=== PATIENT | female | born 1995 | race Hispanic/Latino ===

== ENCOUNTER 2022-05-06 21:20 | Inpatient (IN) | payer OTHER ==
[~2022-05-06] VITALS: Ht 160 cm; Wt 69.9 kg
[2022-05-06] MEDS ORDERED: ACETAMINOPHEN 500 MG TABLET ONE (22:16)
[2022-05-06] MEDS ORDERED: ACETAMINOPHEN 500 MG TABLET PO ONE (22:30)
[2022-05-06] MEDS ORDERED: 0.9%NACL 1000ML 1,000 ML IV ONE (22:30)
[2022-05-06 22:44] LABS: BASOPHILS % (AUTO) 0.3 % (0.0-5.0); HEMATOCRIT 38.4 % (36-48); LYMPHOCYTES % (AUTO) 6.8 % (21.0-51.0); MEAN CORPUSCULAR HEMOGLOBIN 28.3 pg (27.0-33.0); MEAN CORPUSCULAR HGB CONC 32.6 g/dL (32.0-36.0); MEAN CORPUSCULAR VOLUME 86.9 fL (79-99); MONOCYTES % (AUTO) 10.3 % (3.0-13.0); NEUTROPHILS % (AUTO) 81.9 % (40.0-77.0); PLATELET COUNT (AUTO) 359 K/uL (130-400); RED BLOOD CELL COUNT(AUTO) 4.42 MIL/uL (4.00-5.50); RED CELL DISTRIBUTION WIDTH 13.8 % (11.0-15.5); WHITE BLOOD COUNT (AUTO) 26.1 K/uL (4.8-10.8)
[2022-05-06 22:49] LABS: APPEARANCE,URINE CLEAR (CLEAR); BILIRUBIN,URINE NEGATIVE (NEGATIVE); COLOR,URINE LIGHT-YELLOW (YELLOW); GLUCOSE, URINE (UA) NEGATIVE (NEGATIVE); KETONES,URINE NEGATIVE (NEGATIVE); LEUKOCYTE ESTERASE ,URINE NEGATIVE Leu/uL (NEGATIVE); NITRATE,URINE NEGATIVE (NEGATIVE); OCCULT BLOOD,URINE SMALL (NEGATIVE); PH,URINE 6.5 (5.0-8.0); PROTEIN,URINE NEGATIVE (NEGATIVE); UROBILINOGEN,URINE 0.2 mg/dL (0.2-1.0)
[2022-05-06 22:52] LABS: BACTERIA,URINE RARE /HPF (None Seen); HCG,QUALITATIVE URINE NEGATIVE (NEGATIVE); MUCUS,URINE RARE LPF (None Seen); SQUAMOUS EPITHELIAL CELL,UR RARE /HPF (0-2)
[2022-05-06 22:55] LABS: CREATININE 0.7 mg/dL (0.5-1.5); POTASSIUM 4.1 mmol/L (3.5-5.1)
[2022-05-06 23:00] LABS: ALBUMIN 3.3 g/dL (3.5-5.0)
[2022-05-06] MEDS ORDERED: ONDANSETRON 4MG INJ IVP ONE (23:00)
[2022-05-06] MEDS ORDERED: MORPHINE 4 MG SYG IVP ONE (23:00)
[2022-05-06] MEDS ORDERED: KETOROLAC 15MG/ML VIAL (15MG/ML) IV ONE (23:30)
[2022-05-06] MEDS ORDERED: ZOSYN 3.375GM +NS 50ML IVPB STA (23:41)
[2022-05-07] MEDS ORDERED: MORPHINE 2 MG SYG IVP ONE (04:30)
[2022-05-07] MEDS ORDERED: CEFOXITIN SODIUM 2 GM VIAL IVP SCH (06:30)
[2022-05-07] MEDS ORDERED: CLINDAMYCIN IVPB 900MG/50ML 50 ML IV SCH (06:30)
[2022-05-07] MEDS: DEXTROSE 5%-LACTATED RINGERS 1,000 ML IV SCH ×3 (06:52→22:30)
[2022-05-07] MEDS ORDERED: ACETAMINOPHEN 325 MG TAB PO PRN (08:30)
[2022-05-07] MEDS ORDERED: PROMETHAZINE HCL 25 MG/ML 1ML AMPULE IM PRN (08:30)
[2022-05-07] MEDS ORDERED: MEPERIDINE-PF 50 MG/ML SYG IM PRN (08:30)
[2022-05-07] MEDS ORDERED: GENTAMICIN PROTOCOL PER PHARMACY IV SCH ×2 (08:30→09:00)
[2022-05-07] MEDS ORDERED: ONDANSETRON 4MG INJ IVP PRN (08:30)
[2022-05-07] MEDS ORDERED: PHARMACY COMMUNICATION MISC SCH ×2 (08:30→10:30)
[2022-05-07] MEDS ORDERED: HYDROCODONE/ACETAMINOPHEN 5/325 MG TAB PO PRN (08:30)
[2022-05-07] MEDS ORDERED: VANCOMYCIN 1G/250ML KIT 250 ML IV SCH (09:00)
[2022-05-07] MEDS ORDERED: DOXYCYCLINE HYCLATE 100 MG TABLET PO SCH (09:00)
[2022-05-07] MEDS ORDERED: VANCOMYCIN PROTOCOL PER PHARMACY IV SCH (10:00)
[2022-05-07 10:25] VITALS: BP 126/80
[2022-05-07 11:29] VITALS: BP 125/82
[2022-05-07] MEDS: GENTAMICIN SULFATE 60 MG in 0.9%NACL 100ML 100 ML IV SCH ×2 (11:50→21:02)
[2022-05-07] MEDS ORDERED: IBUPROFEN 800 MG TAB ONE (13:43)
[2022-05-07] MEDS: IBUPROFEN 800 MG TAB PO PRN ×2 (13:45→23:13)
[2022-05-07] MEDS: CLINDAMYCIN IVPB 900MG/50ML 50 ML IV SCH ×3 (14:30→22:10)
[2022-05-07 16:21] VITALS: BP 122/78
[2022-05-07 19:18] VITALS: BP 116/71
[2022-05-07 23:07] VITALS: BP 124/75
[2022-05-08 03:43] VITALS: BP 98/58
[2022-05-08 03:45] LABS: BASOPHILS % (AUTO) 0.4 % (0.0-5.0); HEMATOCRIT 34.3 % (36-48); MEAN CORPUSCULAR HEMOGLOBIN 27.8 pg (27.0-33.0); MEAN CORPUSCULAR HGB CONC 32.1 g/dL (32.0-36.0); MEAN CORPUSCULAR VOLUME 86.6 fL (79-99); MONOCYTES % (AUTO) 10.8 % (3.0-13.0); NEUTROPHILS % (AUTO) 72.3 % (40.0-77.0); PLATELET COUNT (AUTO) 339 K/uL (130-400); RED BLOOD CELL COUNT(AUTO) 3.96 MIL/uL (4.00-5.50); RED CELL DISTRIBUTION WIDTH 13.8 % (11.0-15.5)
[2022-05-08] MEDS: GENTAMICIN SULFATE 60 MG in 0.9%NACL 100ML 100 ML IV SCH ×3 (04:26→19:41)
[2022-05-08] MEDS: CLINDAMYCIN IVPB 900MG/50ML 50 ML IV SCH ×3 (06:08→22:38)
[2022-05-08] MEDS: DEXTROSE 5%-LACTATED RINGERS 1,000 ML IV SCH ×3 (06:08→22:30)
[2022-05-08 07:55] VITALS: BP 106/64
[2022-05-08 11:05] VITALS: BP 113/63
[2022-05-08] MEDS: IBUPROFEN 800 MG TAB PO PRN ×2 (14:19→21:08)
[2022-05-08 16:00] VITALS: BP 104/63
[2022-05-08 19:30] VITALS: BP 121/72
[2022-05-08 23:10] VITALS: BP 126/81
[2022-05-09 03:08] VITALS: BP 96/55
[2022-05-09] MEDS: DEXTROSE 5%-LACTATED RINGERS 1,000 ML IV SCH (03:48)
[2022-05-09] MEDS: GENTAMICIN SULFATE 60 MG in 0.9%NACL 100ML 100 ML IV SCH ×2 (03:48→12:23)
[2022-05-09] MEDS: CLINDAMYCIN IVPB 900MG/50ML 50 ML IV SCH ×2 (06:04→13:33)
[2022-05-09 06:41] VITALS: BP 100/60
[2022-05-09 10:21] VITALS: BP 115/64
[2022-05-09] MEDS: IBUPROFEN 800 MG TAB PO PRN (11:52)
[2022-05-09 14:20] VITALS: BP 114/76
[2022-05-09] MEDS ORDERED: METR-172 PO (17:49)
[2022-05-09] MEDS ORDERED: DOXY100C5 PO (17:50)
[2022-05-09] MEDS ORDERED: IBUP-2077 PO (17:52)
== END 2022-05-09 18:15 | disposition home or self-care (01) | DRG 759 ==
LOC: EDH 21:20 → OBSVTOIN 21:21 → EDHIP 21:21 → WSH 05-07 10:25
PROVIDERS: ADMIT Obstetrics & Gynecology; ATTEND Obstetrics & Gynecology
DX: N70.93 Salpingitis and oophoritis, unspecified (principal); N73.9 Female pelvic inflammatory disease, unspecified
CPT/HCPCS: 36415; 74176; 76830; 76856; 80053; 80170; 81001; 81025; 83605; 83690; 85025; 87040; 87210; 87486; 87797; 96361; 96374; 96375; G0378; J0694; J1580; J1885; J2270; J2405; J2543; J3370; J3490; J7030

== ENCOUNTER 2022-05-26 20:55 | Emergency (ER) | payer OTHER ==
[~2022-05-26] VITALS: Ht 160 cm; Wt 68.9 kg
[~2022-05-26 20:55] MED LIST: DOXY100C5 PO; IBUP-2077 PO; METR-172 PO
[2022-05-26 23:21] VITALS: BP 118/65
== END 2022-05-26 23:41 | disposition home or self-care (01) ==
LOC: EDH 20:55
DX: S82.142A Displaced bicondylar fracture of left tibia, initial encounter for closed fracture (principal); Z79.899 Other long term (current) drug therapy; W17.89XA Other fall from one level to another, initial encounter; Y93.89 Activity, other specified; Y92.89 Other specified places as the place of occurrence of the external cause; Y99.8 Other external cause status
CPT/HCPCS: 29505; 73562; 73590